=== PATIENT | female | born 1975 | race Caucasian/White ===

== ENCOUNTER 2025-01-18 08:12 | Outpatient (CLI) | payer BC, SELFPAY ==
--- NOTE | ~2025-01-18 | MM_ITS ---
EXAMINATION: MM screening billy BI w tenisha HISTORY: Screening TECHNIQUE: Craniocaudal and mediolateral oblique 3-D tomosynthesis images were obtained and synthetic 2-D images were generated. CAD analysis was submitted and interpreted. COMPARISON: No prior mammogram is available for comparison at this institution. BREAST PARENCHYMAL COMPOSITION: Dense: The breasts are extremely dense, which lowers the sensitivity of mammography. FINDINGS: There is no evidence of suspicious mass, calcification, or architectural distortion to sugg est malignancy in either breast. There has been no suspicious interval change. IMPRESSION: 1. No mammographic evidence of malignancy. 2. Recommend routine screening mammography in one year. BI-RADS Category 1: Negative Reviewed, dictated and finalized at location []
--- OUTSIDE RECORDS SUMMARY | 2025-01-18 08:21 | XMS_ITS | Data Portability ---
Author Organization RAMIREZ MARKEdilberto Fuentes Alisa Address [address] [place] [address] Care Team Providers Care Montessori Toddler Teacher Name Role Phone KARL BELLO Primary Care Provider Unavailab le Assessment Encounter Date Assessment Date Assessment LastModified by Organization Details LastModified Time 02/13/2024 02/13/2024 Cologuard: UTD 2022 all negative. Mammogram: negative. pap smear 2022 all clear. recent gyne january. eye exam: Due but was clear no glasses or contacts Dental: every 6 months. labs completed. [email or web address] Not available 02/13/2024 10:19:45 Plan of Treatment Reminders Order Date Submit Date Provider Last Modified By Organization Details Last Modified Time Details Appointments ANNUAL 30 2024 09:00A EMELIA Marquez Not available Not available Not available Lab lipid panel, serum 2023 024 [facility], [address] [place] [address], [address], 06/24/2024 07:09:46 TSH + free T4, serum 2023 024 [facility], [address] [facility], [facility], [place], [address], 03/31/2024 03:36:57 T3, free, serum or plasma 2023 024 [facility], [address] [facility], [facility], [place], [address], 03/31/2024 03:36:57 Referral None recorded . Procedures None recorded . Surgeries None recorded . Imaging None recorded . Medication Orders None recorded . Patient TargetsNo targets recorded. Patient InstructionsNo instructions recorded. Reason for Referral None Reported. Results Created Date Observation Date Name Description Value Unit Range Abnormal Flag Note LastModifiedBy Organization Detail LastModifiedTime 02/11/20 24 02/12/2024 LIPID PANEL W/ CHOL/ HDL RATIO cholesterol, total 239 mg/dL 100-19 9 above high normal Not Available [facility] ([facility]) [address] [place], [address], 02/12/2024 03:36:39 02/11/20 24 02/12/2024 LIPID PANEL W/ CHOL/ HDL RATIO triglyceride s 177 mg/dL 0-149 above high normal Not Available [facility] ([facility]) [address] [place], [address], 02/12/2024 03:36:39 02/11/20 24 02/12/2024 LIPID PANEL W/ CHOL/ HDL RATIO HDL cholesterol 42 mg/dL >39 Not Available [facility] ([facility]) [address] [place], [address], 02/12/2024 03:36:39 02/11/20 24 02/12/2024 LIPID PANEL W/ CHOL/ HDL RATIO VLDL cholesterol azul 33 mg/dL 5-40 Not Available [facility] ([facility]) [address] [place], [address], 02/12/2024 03:36:39 02/11/20 24 02/12/2024 LIPID PANEL W/ CHOL/ HDL RATIO LDL chol calc ([facility]) 164 mg/dL 0-99 above high normal Not Available [facility] ([facility]) [address] [place], [address], 02/12/2024 03:36:39 02/11/20 24 02/12/2024 LIPID PANEL W/ CHOL/ HDL RATIO T. chol/HDL ratio 5.7 ratio 0.0-4. 4 above high normal T. Chol/ HDL Ratio Men Women 1/2 Avg.R isk 3.4 3.3 Avg.R isk 5.0 4.4 2X Avg.R isk 9.6 7.1 3X Avg.R isk 23.4 11.0 Not Available [facility] ([facility]) [address] [place], [address], 02/12/2024 03:36:39 02/11/20 24 02/12/2024 TSH+F REE T4 TSH 0.062 uIU/m L 0.450- 4.500 below low normal Not Available [facility] ([facility]) [address] [place], [address], 02/12/2024 03:36:40 02/11/20 24 02/12/2024 TSH+F REE T4 T4,free(dire ct) 1.65 NG/dL 0.82-1 .77 Not Available [facility] ([facility]) [address] [place], [address], 02/12/2024 03:36:40 02/11/20 24 02/12/2024 COMP. METAB OLIC PANEL (14) glucose 94 mg/dL 70-99 Not Available [facility] ([facility]) [address] [place], [address], 02/12/2024 03:36:41 02/11/20 24 02/12/2024 COMP. METAB OLIC PANEL (14) BUN 10 mg/dL 6-24 Not Available [facility] ([facility]) [address] [place], [address], 02/12/2024 03:36:41 02/11/20 24 02/12/2024 COMP. METAB OLIC PANEL (14) creatinine 0.63 mg/dL 0.57-1 .00 Not Available [facility] ([facility]) [address] [place], [address], 02/12/2024 03:36:41 02/11/20 24 02/12/2024 COMP. METAB OLIC PANEL (14) eGFR 111 mL/mi n/1.7 3 >59 Not Available [facility] ([facility]) [address] [facility], [place], [address], 02/12/2024 03:36:41 02/11/20 24 02/12/2024 COMP. METAB OLIC PANEL (14) BUN/creatini ne ratio 16 9-23 Not Available [facility] ([facility]) [address] [facility], [place], [address], 02/12/2024 03:36:41 02/11/20 24 02/12/2024 COMP. METAB OLIC PANEL (14) sodium 136 mmol/ L 134-14 4 Not Available [facility] ([facility]) [address] [facility], [place], [address], 02/12/2024 03:36:41 02/11/20 24 02/12/2024 COMP. METAB OLIC PANEL (14) potassium 4.5 mmol/ L 3.5-5. 2 Not Available [facility] ([facility]) [address] [facility], [place], [address], 02/12/2024 03:36:41 02/11/20 24 02/12/2024 COMP. METAB OLIC PANEL (14) chloride 102 mmol/ L 96-106 Not Available [facility] ([facility]) [address] [facility], [place], [address], 02/12/2024 03:36:41 02/11/20 24 02/12/2024 COMP. METAB OLIC PANEL (14) carbon dioxide, total 23 mmol/ L 20-29 Not Available [facility] ([facility]) [address] [facility], [place], [address], 02/12/2024 03:36:41 02/11/20 24 02/12/2024 COMP. METAB OLIC PANEL (14) calcium 9.4 mg/dL 8.7-10 .2 Not Available [facility] ([facility]) [address] [place], [address], 02/12/2024 03:36:41 02/11/20 24 02/12/2024 COMP. METAB OLIC PANEL (14) protein, total 7.4 g/dL 6.0-8. 5 Not Available [facility] ([facility]) [address] [place], [address], 02/12/2024 03:36:41 02/11/20 24 02/12/2024 COMP. METAB OLIC PANEL (14) albumin 4.4 g/dL 3.9-4. 9 Not Available [facility] ([facility]) [address] [place], [address], 02/12/2024 03:36:41 02/11/20 24 02/12/2024 COMP. METAB OLIC PANEL (14) globulin, total 3.0 g/dL 1.5-4. 5 Not Available [facility] ([facility]) [address] [place], [address], 02/12/2024 03:36:41 02/11/20 24 02/12/2024 COMP. METAB OLIC PANEL (14) bilirubin, total 0.4 mg/dL 0.0-1. 2 Not Available [facility] ([facility]) [address] [place], [address], 02/12/2024 03:36:41 02/11/20 24 02/12/2024 COMP. METAB OLIC PANEL (14) alkaline phosphatase 69 IU/L 44-121 Not Available [facility] ([facility] [address] [place], [address], 02/12/2024 03:36:41 02/11/20 24 02/12/2024 COMP. METAB OLIC PANEL (14) AST (SGOT) 19 IU/L 0-40 Not Available [facility] ([facility]) [address] [facility], [place], [address], 02/12/2024 03:36:41 02/11/20 24 02/12/2024 COMP. METAB OLIC PANEL (14) ALT (SGPT) 17 IU/L 0-32 Not Available [facility] ([facility]) [address] [facility], [place], [address], 02/12/2024 03:36:41 02/11/20 24 02/12/2024 HEMOG LOBIN A1C hemoglobin A1C 5.5 % 4.8-5. 6 Predi abete s: 5.7 - 6.4 Diabe mei: >6.4 Glyce jade contr ol for adult s with diabe mei: <7.0 Not Available [facility] ([facility]) [address] [facility], [place], [address], 02/12/2024 03:36:41 02/11/20 24 02/12/2024 CBC WITH DIFFE RENTI AL/PL ATELE T WBC 7.4 x10e3 /uL 3.4-10 .8 Not Available [facility] ([facility]) [address] [facility], [place], [address], 02/12/2024 03:36:42 02/11/20 24 02/12/2024 CBC WITH DIFFE RENTI AL/PL ATELE T RBC 4.78 x10e6 /uL 3.77-5 .28 Not Available [facility] ([facility]) [address] [facility], [place], [address], 02/12/2024 03:36:42 02/11/20 24 02/12/2024 CBC WITH DIFFE RENTI AL/PL ATELE T hemoglobin 13.6 g/dL 11.1-1 5.9 Not Available [facility] ([facility]) [address] [facility], [place], [address], 02/12/2024 03:36:42 02/11/20 24 02/12/2024 CBC WITH DIFFE RENTI AL/PL ATELE T hematocrit 41.9 % 34.0-4 6.6 Not Available [facility] ([facility]) [address] [facility], [place], [address], 02/12/2024 03:36:42 02/11/20 24 02/12/2024 CBC WITH DIFFE RENTI AL/PL ATELE T MCV 88 fL 79-97 Not Available [facility] ([facility]) [address] [facility], [place], [address], 02/12/2024 03:36:42 02/11/20 24 02/12/2024 CBC WITH DIFFE RENTI AL/PL ATELE T MCH 28.5 pg 26.6-3 3.0 Not Available [facility] ([facility]) [address] [facility], [place], [address], 02/12/2024 03:36:42 02/11/20 24 02/12/2024 CBC WITH DIFFE RENTI AL/PL ATELE T MCHC 32.5 g/dL 31.5-3 5.7 Not Available [facility] ([facility]) [address] [facility], [place], [address], 02/12/2024 03:36:42 02/11/20 24 02/12/2024 CBC WITH DIFFE RENTI AL/PL ATELE T RDW 12.5 % 11.7-1 5.4 Not Available [facility] ([facility]) [address] [facility], [place], [address], 02/12/2024 03:36:42 02/11/20 24 02/12/2024 CBC WITH DIFFE RENTI AL/PL ATELE T platelets 280 x10e3 /uL 150-45 0 Not Available [facility] ([facility]) [address] [facility], [place], [address], 02/12/2024 03:36:42 02/11/20 24 02/12/2024 CBC WITH DIFFE RENTI AL/PL ATELE T neutrophils 56 % notest ab. Not Available [facility] ([facility]) [address] [facility], [place], [address], 02/12/2024 03:36:42 02/11/20 24 02/12/2024 CBC WITH DIFFE RENTI AL/PL ATELE T lymphs 29 % notest ab. Not Available [facility] ([facility]) [address] [facility], [place], [address], 02/12/2024 03:36:42 02/11/20 24 02/12/2024 CBC WITH DIFFE RENTI AL/PL ATELE T monocytes 12 % notest ab. Not Available [facility] ([facility]) [address] [facility], [place], [address], 02/12/2024 03:36:42 02/11/20 24 02/12/2024 CBC WITH DIFFE RENTI AL/PL ATELE T eos 2 % notest ab. Not Available [facility] ([facility]) [address] [facility], [place], [address], 02/12/2024 03:36:42 02/11/20 24 02/12/2024 CBC WITH DIFFE RENTI AL/PL ATELE T basos 1 % notest ab. Not Available [facility] ([facility]) [address] [facility], [place], [address], 02/12/2024 03:36:42 02/11/20 24 02/12/2024 CBC WITH DIFFE RENTI AL/PL ATELE T neutrophils (absolute) 4.1 x10e3 /uL 1.4-7. 0 Not Available [facility] ([facility]) [address] [place], [address], 02/12/2024 03:36:42 02/11/20 24 02/12/2024 CBC WITH DIFFE RENTI AL/PL ATELE T lymphs (absolute) 2.1 x10e3 /uL 0.7-3. 1 Not Available [facility] ([facility]) [address] [facility], [place], [address], 02/12/2024 03:36:42 02/11/20 24 02/12/2024 CBC WITH DIFFE RENTI AL/PL ATELE T monocytes(ab solute) 0.9 x10e3 /uL 0.1-0. 9 Not Available [facility] ([facility]) [address] [facility], [place], [address], 02/12/2024 03:36:42 02/11/20 24 02/12/2024 CBC WITH DIFFE RENTI AL/PL ATELE T eos (absolute) 0.2 x10e3 /uL 0.0-0. 4 Not Available [facility] ([facility]) [address] [facility], [place], [address], 02/12/2024 03:36:42 02/11/20 24 02/12/2024 CBC WITH DIFFE RENTI AL/PL ATELE T baso (absolute) 0.1 x10e3 /uL 0.0-0. 2 Not Available [facility] ([facility]) [address] [facility], [place], [address], 02/12/2024 03:36:42 02/11/20 24 02/12/2024 CBC WITH DIFFE RENTI AL/PL ATELE T immature granulocytes 0 % notest ab. Not Available [facility] ([facility]) [address] [place], [address], 02/12/2024 03:36:42 02/11/20 24 02/12/2024 CBC WITH DIFFE RENTI AL/PL ATELE T immature grans (abs) 0.0 x10e3 /uL 0.0-0. 1 Not Available [facility] ([facility]) [address] [facility], [place], [address], 02/12/2024 03:36:42 03/30/20 24 03/31/2024 TSH+F REE T4 TSH 0.175 uIU/m L 0.450- 4.500 below low normal Not Available [facility] ([facility]) [address] [place], [address], 03/31/2024 03:36:56 03/30/20 24 03/31/2024 TSH+F REE T4 T4,free(dire ct) 1.03 NG/dL 0.82-1 .77 Not Available [facility] ([facility]) [address] [place], [address], 03/31/2024 03:36:56 03/30/20 24 03/31/2024 TRIIO DOTHY BRIAN E (T3), FREE triiodothyro nine (T3), free 2.6 pg/mL 2.0-4. 4 Not Available [facility] ([facility]) [address] [place], [address], 03/31/2024 03:36:57 06/23/20 24 06/24/2024 LIPID PANEL W/ CHOL/ HDL RATIO cholesterol, total 219 mg/dL 100-19 9 above high normal Not Available [facility] ([facility]) [address] [place], [address], 06/24/2024 07:09:46 06/23/20 24 06/24/2024 LIPID PANEL W/ CHOL/ HDL RATIO triglyceride s 252 mg/dL 0-149 above high normal Not Available [facility] ([facility]) [address] [place], [address], 06/24/2024 07:09:46 06/23/20 24 06/24/2024 LIPID PANEL W/ CHOL/ HDL RATIO HDL cholesterol 37 mg/dL >39 below low normal Not Available [facility] ([facility]) [address] [place], [address], 06/24/2024 07:09:46 06/23/20 24 06/24/2024 LIPID PANEL W/ CHOL/ HDL RATIO VLDL cholesterol azul 45 mg/dL 5-40 above high normal Not Available [facility] ([facility]) [address] [place], [address], 06/24/2024 07:09:46 06/23/20 24 06/24/2024 LIPID PANEL W/ CHOL/ HDL RATIO LDL chol calc ([facility]) 137 mg/dL 0-99 above high normal Not Available [facility] ([facility]) [address] [place], [address], 06/24/2024 07:09:46 06/23/20 24 06/24/2024 LIPID PANEL W/ CHOL/ HDL RATIO T. chol/HDL ratio 5.9 ratio 0.0-4. 4 above high normal T. Chol/ HDL Ratio Men Women 1/2 Avg.R isk 3.4 3.3 Avg.R isk 5.0 4.4 2X Avg.R isk 9.6 7.1 3X Avg.R isk 23.4 11.0 Not Available [facility] ([facility]) [address] [place], [address], 06/24/2024 07:09:46 10/14/19 25 10/14/2024 LIPID PANEL W/ CHOL/ HDL RATIO cholesterol, total 212 mg/dL 100-19 9 above high normal Not Available [facility] ([facility]) [address] [place], [address], 10/14/2024 07:13:03 10/14/19 25 10/14/2024 LIPID PANEL W/ CHOL/ HDL RATIO triglyceride s 156 mg/dL 0-149 above high normal Not Available [facility] ([facility]) [address] [place], [address], 10/14/2024 07:13:03 10/14/19 25 10/14/2024 LIPID PANEL W/ CHOL/ HDL RATIO HDL cholesterol 44 mg/dL >39 Not Available [facility] ([facility]) [address] [place], [address], 10/14/2024 07:13:03 10/14/19 25 10/14/2024 LIPID PANEL W/ CHOL/ HDL RATIO VLDL cholesterol azul 28 mg/dL 5-40 Not Available [facility] ([facility]) [address] [place], [address], 10/14/2024 07:13:03 10/14/19 25 10/14/2024 LIPID PANEL W/ CHOL/ HDL RATIO LDL chol calc ([facility]) 140 mg/dL 0-99 above high normal Not Available [facility] ([facility]) [address] [place], [address], 10/14/2024 07:13:03 10/14/19 25 10/14/2024 LIPID PANEL W/ CHOL/ HDL RATIO T. chol/HDL ratio 4.8 ratio 0.0-4. 4 above high normal T. Chol/ HDL Ratio Men Women 1/2 Avg.R isk 3.4 3.3 Avg.R isk 5.0 4.4 2X Avg.R isk 9.6 7.1 3X Avg.R isk 23.4 11.0 Not Available [facility] ([facility]) [address] [place], [address], 10/14/2024 07:13:03 10/14/19 25 10/14/2024 COMP. METAB OLIC PANEL (14) glucose 89 mg/dL 70-99 Not Available [facility] ([facility]) [address] [place], [address], 10/14/2024 07:13:04 10/14/19 25 10/14/2024 COMP. METAB OLIC PANEL (14) BUN 13 mg/dL 6-24 Not Available [facility] ([facility]) [address] [place], [address], 10/14/2024 07:13:04 10/14/19 25 10/14/2024 COMP. METAB OLIC PANEL (14) creatinine 0.70 mg/dL 0.57-1 .00 Not Available [facility] ([facility]) [address] [facility], [place], [address], 10/14/2024 07:13:04 10/14/19 25 10/14/2024 COMP. METAB OLIC PANEL (14) eGFR 108 mL/mi n/1.7 3 >59 Not Available [facility] ([facility]) [address] [facility], [place], [address], 10/14/2024 07:13:04 10/14/19 25 10/14/2024 COMP. METAB OLIC PANEL (14) BUN/creatini ne ratio 19 9-23 Not Available [facility] ([facility]) [address] [facility], [place], [address], 10/14/2024 07:13:04 10/14/19 25 10/14/2024 COMP. METAB OLIC PANEL (14) sodium 137 mmol/ L 134-14 4 Not Available [facility] ([facility]) [address] [facility], [place], [address], 10/14/2024 07:13:04 10/14/19 25 10/14/2024 COMP. METAB OLIC PANEL (14) potassium 5.1 mmol/ L 3.5-5. 2 Not Available [facility] ([place] [facility]) [address] [facility] [place], [address], 10/14/2024 07:13:04 10/14/19 25 10/14/2024 COMP. METAB OLIC PANEL (14) chloride 102 mmol/ L 96-106 Not Available [facility] ([facility] [facility]) [address] [facility] [place], [address], 10/14/2024 07:13:04 10/14/19 25 10/14/2024 COMP. METAB OLIC PANEL (14) carbon dioxide, total 23 mmol/ L 20-29 Not Available [facility] ([facility]) [address] [facility], [place], [address], 10/14/2024 07:13:04 10/14/19 25 10/14/2024 COMP. METAB OLIC PANEL (14) calcium 9.5 mg/dL 8.7-10 .2 Not Available [facility] ([facility]) [address] [facility], [place], [address], 10/14/2024 07:13:04 10/14/19 25 10/14/2024 COMP. METAB OLIC PANEL (14) protein, total 7.2 g/dL 6.0-8. 5 Not Available [facility] ([facility]) [address] [facility], [place], [address], 10/14/2024 07:13:04 10/14/19 25 10/14/2024 COMP. METAB OLIC PANEL (14) albumin 4.5 g/dL 3.9-4. 9 Not Available [facility] ([facility]) [address] [facility], [place], [address], 10/14/2024 07:13:04 10/14/19 25 10/14/2024 COMP. METAB OLIC PANEL (14) globulin, total 2.7 g/dL 1.5-4. 5 Not Available [facility] ([facility]) [address] [facility], [place], [address], 10/14/2024 07:13:04 10/14/19 25 10/14/2024 COMP. METAB OLIC PANEL (14) bilirubin, total 0.4 mg/dL 0.0-1. 2 Not Available [facility] ([facility]) [address] [facility], [place], [address], 10/14/2024 07:13:04 10/14/19 25 10/14/2024 COMP. METAB OLIC PANEL (14) alkaline phosphatase 79 IU/L 44-121 Not Available [facility] ([facility]) [address] [facility], [place], [address], 10/14/2024 07:13:04 04/09/20 25 10/14/2024 COMP. METAB OLIC PANEL (14) AST (SGOT) 18 IU/L 0-40 Not Available [facility] ([facility]) [address] [facility], [place], [address], 10/14/2024 07:13:04 10/14/19 25 10/14/2024 COMP. METAB OLIC PANEL (14) ALT (SGPT) 15 IU/L 0-32 Not Available [facility] ([facility]) [address] [facility], [place], [address], 10/14/2024 07:13:04 Result Notes None recorded. Problems Name Problem SNOMED Code Status Onset Date Resolution Date Notes Provider Name and Address Organization Details Recorded Time Thyroid function tests abnormal 080454123 Active 2023 EMELIA Allen Attn: Damion peri,[address] [place], [address], [facility] 4 15:56:57 Mixed hyperlipidemia 233751953 Active 2023 EMELIA Allen Attn: Haydenelba whitt,[address] [place], [address], [facility] 4 15:56:58 Body mass index 20-24 - normal 061672758 Active 2023 EMELIA Allen Attn: Haydenelba whitt,[address] [place], [address], [facility] 4 15:56:58 Problem Notes None recorded. Procedures Surgical History Date Name Laterality Status Provider Name and Address Organization Details Recorded Time section completed Chidi Barrera MA [facility] 02/13/2024 09:58:48 Imaging Results None recorded. Procedure Notes None recorded. Medical Equipment None Reported. Allergies No known drug allergies Medications Name Sig Start Date Stop Date Status Note LastModified by Organization Details LastModified Time fluconazole 150 mg tablet TAKE 1 TABLET BY MOUTH EVERY 72 HOURS active Not Available Not Available No t Available valacyclovi r 1 gram tablet TAKE 2 TABLETS BY MOUTH TWICE DAILY FOR 1 DAY 02/12 completed Not Available Not Available Not Available metronidazo le 500 mg tablet TAKE 1 TABLET BY MOUTH EVERY 12 HOURS FOR 7 DAYS 02/06 completed Not Available Not Available Not Available ezetimibe 10 mg tablet TAKE 1 TABLET BY MOUTH EVERY DAY 2024 active Not Available Not Available Not Avai lable Paxlovid 300 mg (150 mg x 2)-100 mg tablets in a dose pack TAKE 3 TABLETS BY MOUTH TWICE A DAY DIRECTED 02/12 completed Not Available Not Available Not Available Vitals Date Recorded Systolic And Diastolic Provider Name and Address Organization Details Last Updated DateTime 02/13/2024 128/80 mm[Hg] EMELIA Allen Attn: Accounting,[address] [place], [address], [facility] 02/13/2024 10:37:35 Date Recorded Body weight Body mass index (BMI) Body height Respiratory rate Oxygen saturation Oxygen saturation in Arterial blood by Pulse oximetry Heart rate Systolic And Diastolic Provider Name and Address Organization Details Last Updated DateTime 35608.4 1 g 24.4 kg/m2 170.18 cm 20 /min 99 % 99 % 88 /min 128/82 mm[Hg] Chidi Barrera MA [facility] 10:00:21 Social History Question Answer Notes LastModified by Organizat ion Details LastModified Time Tobacco Smoking Status Never Smoker Chidi Barrera MA null, [facility] 02/13/2024 09:58:20 Do You Have An Advance Directive? No Information not available 02/13/2024 Are You Blind Or Do You Have Difficulty Seeing? No Information not available 02/13/2024 What Is Your Level Of Caffeine Consumption? Moderate Tea/soda Information not available 02/13/2024 In The 14 Days Before Symptom Onset, Have You Had Close Contact With A Laboratory-confir med COVID-19 While That Case Was Ill? No Information not available 02/12/2024 In The 14 Days Before Symptom Onset, Have You Had Close Contact With A Person Who Is Under Investigation For COVID-19 While That Person Was Ill? No Information not available 02/12/2024 Have You Been To An Area Known To Be High Risk For COVID-19? No Information not available 02/12/2024 Are You Deaf Or Do You Have Serious Difficulty Hearing? No Information not available 02/13/2024 What Type Of Diet Are You Following? REGULAR Information not available 02/13/2024 Are There Any Guns Present In Your Home? No Information not available 02/13/2024 What Was The Date Of Your Most Recent Tobacco Screening? 02/13/2024 Information not available 02/13/2024 Do You Use Your Seat Belt Or Car Seat Routinely? Yes Information not available 02/13/2024 Do You Have Smoke And Carbon Monoxide Detectors In Your Home? Yes Information not available 02/12/2024 Do You Use Sunscreen Routinely? Yes Information not available 02/13/2024 Has Tobacco Cessation Counseling Been Provided? No Information not available 02/13/2024 Sex: Unknown Functional Status Question Answer Note LastModified by Organizat ion Details LastModified Time Do you use any illicit or recreational drugs? No Information not available 02/13/2024 Do you or have you ever used any other forms of tobacco or nicotine? No Information not available 02/13/2024 What is your level of alcohol consumption? Occasional rare Information not available 02/13/2024 Are you able to care for yourself? Yes Information not available 02/12/2024 What is your exercise level? Moderate walking Information not available 02/13/2024 Mental Status None recorded. Family History Relationship Description Onset Age of this Age Resolved Age Notes LastModified by Organization Details LastModified Time Father Dementia [email or web address] Not availabl e 02/13/2024 11:06:25 Father Hypercholest erolemia [email or web address] Not available 2023 11:06:34 Mother Hypercholest erolemia [email or web address] Not available 2023 11:06:34 Medical History No medical history recorded. Gynecological History Statement/Question Response Menses Monthly Y Duration of Flow (days) 6 Flow Moderate Date of LMP 01/29/2024 LMP Approximate Obstetrics History GPAL:G 2 P 2 0 0 2 Type Value Full Term 2 Induced 0 Spontaneous 0 Premature 0 Living 2 Total 2 Past Encounters Encounter ID Performer Location Encounter Start Date Encounter Closed Date Diagnosis/Indication Diagnosis SNOMED-CT Code Diagnosis ICD10 Code Diagnosis Note [id number] Pb Darden MD [facility] Dyana Redmond [address] [place] [address] 02/13/2024 09:46:28 02/13/2024 10:42:14 Body mass index 20-24 - normal [id number] Z68.24 BMI is 24.4 Adult heal th examination [id number] Z00.00 Annual wellness exam complete and labs have all been reviewed. Mixed hyperlipidemia [id number] E78.2 1.8% 10 year CV risk. STATIN is not required at this time. parents do both have hyperlipid emia but no CAD/CVD. Repeat fasting lipids June Thyroid fu nction tests abnormal [id number] R94.6 TSH is low at 0.062 and T4 free is 1.65. We will repeat these labs mid March to see if there was any transient abnormalit y present Health Concerns Section Related Observation LastModified by Organization Detai ls LastModified Time None Recorded Concern Status LastModified by Organization Details LastModified Time None Recorded Advance Directives Directive N: Payers Insurance Date Sequence Insurance Name Policy Number Policy Reyes Covered Member ID Reyes Member ID Guarantor Name 06/28/2024 1 [facility] [id number] Elenita Interiano [id number] Elenita Interiano Notes Date Note Type Note Provider Name and Address Organization Details Recorded Time 02/13/2024 text/html Patient is here for annual wellness exam and has no complaints. She would like to discuss her labs that she completed prior to this visit. EMELIA Allen Attn: Accounting,[address] [facility], [place], [address], [facility] 03/06/2024 15:58:14 OBGyn Episode No OBEpisode recorded.
== END 2025-01-18 08:13 | disposition home or self-care (01) ==
PROVIDERS: PCP Physician Assistant; Visit Provider Obstetrics & Gynecology
DX: Z12.31 Encounter for screening mammogram for malignant neoplasm of breast (principal)
CPT/HCPCS: 77063; 77067